=== PATIENT | male | born 1990 | race African-American/Black ===

== ENCOUNTER → 2016-12-27 | Emergency (ER) | payer MEDICAID ==
[~2016-12-27] MED LIST: NORPTMEDS CO
== END | disposition left against medical advice (07) ==
LOC: ER 05:52
DX: R10.9 Unspecified abdominal pain (principal); Z53.21 Procedure and treatment not carried out due to patient leaving prior to being seen by health care provider

== ENCOUNTER 2017-08-11 06:08 | Emergency (ER) | payer MEDICAID ==
[~2017-08-11] VITALS: Ht 175.3 cm; Wt 69.4 kg
[2017-08-11 08:18] VITALS: BP 123/69
== END 2017-08-11 08:50 | disposition home or self-care (01) ==
LOC: ER 06:12
DX: J20.9 Acute bronchitis, unspecified (principal)
CPT/HCPCS: 71020

== ENCOUNTER 2018-02-19 06:46 | Emergency (ER) | payer MEDICAID, OTHER ==
[~2018-02-19] VITALS: Ht 175.3 cm; Wt 69.4 kg
[2018-02-19 06:59] VITALS: BP 105/75
== END 2018-02-19 08:00 | disposition home or self-care (01) ==
LOC: ER 06:54
DX: R05 Cough (principal); R09.81 Nasal congestion; J02.9 Acute pharyngitis, unspecified; R07.9 Chest pain, unspecified

== ENCOUNTER 2018-04-19 12:05 | Emergency (ER) | payer OTHER ==
[~2018-04-19] VITALS: Ht 175.3 cm; Wt 71.2 kg
[2018-04-19 13:04] VITALS: BP 102/73
== END 2018-04-19 13:53 | disposition home or self-care (01) ==
LOC: ER 12:09
DX: J02.9 Acute pharyngitis, unspecified (principal)